=== PATIENT | female | born 1960 | race African-American/Black ===

== ENCOUNTER 2017-03-11 20:19 | Emergency (ER) | payer BC ==
[~2017-03-11] VITALS: Ht 154.9 cm; Wt 92.5 kg
[~2017-03-11 20:19] MED LIST: AZO STANDARD95 MG PO; CRESTOR10 MG PO; NORCO 5-325 TA1 EACH PO; NORFLEX100 MG PO; SYNTHROID; TRINATE TABLET1 TAB; ZOLOFT 50 MG TA50 M1 PO
[2017-03-11] MEDS ORDERED: LEVO-T200 MCG PO (22:06)
[2017-03-11] MEDS ORDERED: VESICARE10 M1 PO (22:08)
[2017-03-12 00:14] VITALS: BP 131/67
== END 2017-03-12 01:02 | disposition home or self-care (01) ==
LOC: ER 20:19
DX: M25.561 Pain in right knee (principal); F10.99 Alcohol use, unspecified with unspecified alcohol-induced disorder; E03.9 Hypothyroidism, unspecified; Z88.1 Allergy status to other antibiotic agents